=== PATIENT | male | born 1960 | race Hispanic/Latino ===

== ENCOUNTER 2019-10-27 05:49 | Outpatient (CLI) | payer BC, OTHER ==
[2019-10-27 11:23] LABS: #Eosinphils 0.2 thou/uL (0.0-0.7); #Lymphocytes 2.2 thou/uL (1.20-3.40); #Monocytes 0.5 thou/uL (0.11-0.59); #Neutrophils 2.6 thou/uL (1.40-6.50); %Basophils 0.7 % (0.0-1.0); %Eosinophils 2.8 % (0.0-10.0); %Lymphocytes 39.9 % (21.0-51.0); %Monocytes 9.5 % (0.0-10.0); %Neutrophils 47.3 % (42.0-75.0); Hemoglobin 16.3 g/dL (14.0-18.0); Mean Corpuscular Hemoglobin 30.9 pg (27.0-31.0); Mean Corpuscular Volume 93.6 fL (78.0-98.0); Mean Platelet Volume 10.4 fL (7.4-10.4); Platelet Count 141 thou/uL (130-400); RBC Distribution Width 11.6 % (11.5-14.5); Red Blood Cell (RBC) Count 5.27 mill/uL (4.70-6.10); White Blood Cell (WBC) Count 5.5 thou/uL (4.8-10.8)
[2019-10-27 12:27] LABS: Anion Gap 14 mmol/L (10-20); BUN (Urea Nitrogen) 20 mg/dL (8.4-25.7); Calc. Creatinine Clearance 0 mL/min (70-130); Calcium 9.1 mg/dL (7.8-10.44); Carbon Dioxide 21 mmol/L (23-31); Chloride 105 mmol/L (98-107); Estimated GFR-MDRD 80; Glucose 104 mg/dL (80-115); Potassium 4.1 mmol/L (3.5-5.1); Sodium 136 mmol/L (136-145)
[2019-10-27 17:18] LABS: SARS-CoV-2 MS2 Positive; SARS-CoV-2 N Gene Negative; SARS-CoV-2 S Gene Negative; SARS-CoV-2 by NAA Not Detected (NotDetected); SARS-CoV-2 orf1ab Negative
--- NOTE | 2019-10-30 15:37 | EKG ---
Test Reason : Blood Pressure : / mmHG Vent. Rate : 079 BPM Atrial Rate : 079 BPM P-R Int : 160 ms QRS Dur : 086 ms QT Int : 360 ms P-R-T Axes : 016 026 -03 degrees QTc Int : 412 ms Normal sinus rhythm Possible Inferior infarct , age undetermined Abnormal ECG Confirmed by REBECA BAÑUELOS M.D. ([id number]) on 10/30/2019 3:36:34 PM Referred By: DYAN Confirmed By:REBECA BAÑUELOS M.D.
== END 2019-10-27 05:50 | disposition home or self-care (01) ==
LOC: LABBT 05:49
PROVIDERS: ATTEND Specialist
DX: Z01.818 Encounter for other preprocedural examination (principal); K42.9 Umbilical hernia without obstruction or gangrene; K40.90 Unilateral inguinal hernia, without obstruction or gangrene, not specified as recurrent; Z20.828 Contact with and (suspected) exposure to other viral communicable diseases
CPT/HCPCS: 80048; 85025; 87635; 93005; 93010; U0003

== ENCOUNTER 2019-11-01 06:00 | Day surgery (SDC) | payer BC ==
[2019-10-26 15:42] VITALS: BMI 31.0
[2019-11-01] MEDS ORDERED: Levofloxacin 500 mg/D5W 100 ml Premix Bag ONE (06:15)
[2019-11-01] MEDS ORDERED: Acetaminophen 500 MG TAB ONE (06:15)
[2019-11-01] MEDS ORDERED: Ketorolac Tromethamine 30 MG/ML VIAL ONE (06:15)
[2019-11-01] MEDS ORDERED: Gabapentin 300 MG CAP ONE (06:15)
[2019-11-01] MEDS ORDERED: Fentanyl 100 MCG/2 ML VIAL ONE (06:36)
[2019-11-01] MEDS ORDERED: Bupivacaine PF 0.5% 30 ML VIAL ONE (06:46)
[2019-11-01] MEDS ORDERED: Lidocaine 1% w/Epinephrine 1:100K 20 ML VIAL ONE (06:47)
[2019-11-01] MEDS ORDERED: Fentanyl 250 MCG/5 ML VIAL ONE (06:51)
[2019-11-01] MEDS ORDERED: Midazolam HCl 2 mg/2 ml Vial ONE (07:19)
--- NOTE | 2019-11-01 10:30 | OP ---
DATE OF PROCEDURE: 11/01/2019 PREOPERATIVE DIAGNOSES: Left inguinal hernia, umbilical hernia. POSTOPERATIVE DIAGNOSIS: Left inguinal hernia, umbilical hernia. PROCEDURE PERFORMED: Robot laparoscopic large mesh 3D Bard Max mesh repair, left inguinal hernia. Open umbilical hernia repair with mesh, 8 cm round Bard with straps. ANESTHESIA: General, local 0.5% Marcaine 30 mL mixed with 1% Xylocaine with epinephrine 20 mL total volume used. FINDINGS: Very large left inguinal hernia. Umbilical hernia. DESCRIPTION OF PROCEDURE: The patient was taken to the operating room where under general anesthesia, Melo catheter placed at the beginning of the procedure and removed at the end. Abdomen was clipped of hair, prepared with ChloraPrep and draped in routine fashion. Local anesthetic was infiltrated in the skin and subcutaneous tissue about the operative sites. A supraumbilical left of midline incision made, pneumoperitoneum to 15 mmHg was obtained with the Veress needle, replaced with an 11-mm balloon port. Bilateral left and right incision was made above the umbilical level and 8-mm ports placed, properly positioned. Robot docked, positioned, and robot inguinal hernia left repair undertaken. Peritoneal flap dissected free medial to the anterior iliac spine left and flap dissected free from the cord structures, preserving the inferior epigastric vessels without harm. Timur ligament was identified towards the midline and laterally, the flap dissected free. A large lipoma of the cord and a very large hernia sac dissected free from the cord structures, skeletonizing it for at least 8 cm. A 3D Bard Max large left mesh placed, properly positioned, secured to Timur ligament with 2-0 Vicryl and to the anterior abdominal wall and to the left of the inferior epigastric vessels with 2-0 Vicryl suture. Mesh properly positioned. Good hemostasis noted. Peritoneal flap closed with continuous suture of 3-0 V-Loc suture. A 2nd 3-0 V-Loc suture used to close peritoneal flap. Ariton and sutures removed, retrieved. Pneumoperitoneum reduced trocar sites. Skin incisions closed with 4-0 Monocryl subcuticular and Dermabond applied. Infraumbilical incision made and carried down through skin and subcutaneous tissue and the hernia sac dissected free. There was a fairly large 3 cm hernia defect. Fascia dissected free circumferentially. 3D, 8 cm, round, mesh Bard placed in the preperitoneal space and the hernia defect closed by approximating mesh and fascia. [id number] type fashion with interrupted suture of 0 PDS pop-offs. Once this was completed, subcutaneous tissue was approximated with 3-0 Monocryl, skin with subdermal 4-0 Monocryl and [place] glue applied. The patient tolerated the procedure well. Job ID: [id number]
[2019-11-01] MEDS ORDERED: traMADol HCl 50 MG TAB ONE (12:29)
[2019-11-01] MEDS ORDERED: Glycopyrrolate 0.2 MG/ML 5 ML SYRINGE ONE (15:51)
[2019-11-01] MEDS ORDERED: Dexamethasone 20 MG/5 ML VIAL ONE (15:51)
[2019-11-01] MEDS ORDERED: Lidocaine 1% PF 5 ML VIAL ONE (15:51)
[2019-11-01] MEDS ORDERED: PROPOFOL 200 MG/20 ML VIAL ONE (15:51)
[2019-11-01] MEDS ORDERED: PHENYLEPHRINE-NS 100 MCG/ML 10 ML SYRINGE ONE (15:51)
[2019-11-01] MEDS ORDERED: EPHEDRINE 25 MG/5 ML SYRINGE ONE (15:51)
[2019-11-01] MEDS ORDERED: Ondansetron PF 4 MG/2 ML Vial ONE (15:51)
[2019-11-01] MEDS ORDERED: Rocuronium Bromide 10 MG/ML (10ML VIAL) ONE (15:51)
--- NOTE | 2019-11-02 12:30 | HP ---
HISTORY: Frank Evans is a 59-year-old male patient with works at [employer]. He has an umbilical hernia and left inguinal hernia that I saw him in April 2016, planning repair, but he has postponed this. He now reports for repair. He is due for colonoscopy soon, we will arrange that. Plan is laparoscopic/robot mesh repair left inguinal hernia outpatient and under the same anesthesia open umbilical hernia repair with mesh. He understands risks and benefits, and consents. ALLERGIES: PENICILLIN AND NEOSPORIN. TOBACCO: None. ALCOHOL: None. REVIEW OF SYSTEMS: Noncontributory. FAMILY HISTORY: Noncontributory. MEDICATIONS: None. PAST MEDICAL HISTORY: Anxiety. PAST SURGICAL HISTORY: Noncontributory. PHYSICAL EXAMINATION: VITAL SIGNS: 204 pounds, 68 inches, 135/81, 98, 97.9 degrees. HEAD, EARS, EYES, NOSE, THROAT: Unremarkable. LUNGS: Clear to auscultation. CARDIAC: Regular rate and rhythm. No murmur or gallop. ABDOMEN: Soft. Umbilical hernia reducible, 2-3 cm defect. GENITALIA: Left inguinal hernia on standing, enlarged on Valsalva. Testicles normal. Right groin without hernia. ASSESSMENT/PLAN: 1. Umbilical hernia. Plan open repair with mesh after completion of robot laparoscopic left inguinal hernia repair with mesh. He understands risks and benefits, consents. 2. Left inguinal hernia. Plan robot/laparoscopic repair with mesh outpatient. He understands risks and benefits, consents. Job ID: [id number]
== END 2019-11-01 15:15 | disposition home or self-care (01) ==
LOC: SDC 06:00
PROVIDERS: ATTEND Specialist
PROC: 0YU64JZ Supplement Left Inguinal Region with Synthetic Substitute, Percutaneous Endoscopic Approach (ICD-10-PCS; principal; 2019-11-01)
PROC: 0WUF0JZ Supplement Abdominal Wall with Synthetic Substitute, Open Approach (ICD-10-PCS; principal; 2019-11-01)
DX: K40.90 Unilateral inguinal hernia, without obstruction or gangrene, not specified as recurrent (principal); K42.9 Umbilical hernia without obstruction or gangrene; Z79.899 Other long term (current) drug therapy; Z88.0 Allergy status to penicillin; Z88.1 Allergy status to other antibiotic agents
CPT/HCPCS: C1781; J1100; J1885; J1956; J2250; J2405; J2704; J3010; S0020

== ENCOUNTER 2023-03-15 08:07 | Outpatient (CLI) | payer BC | END 2023-03-15 08:08 | disposition home or self-care (01) | LOC: BICMRI 08:07 | PROVIDERS: ATTEND Pediatrics | DX: M25.461 Effusion, right knee (principal); S83.241A Other tear of medial meniscus, current injury, right knee, initial encounter; M23.91 Unspecified internal derangement of right knee ==

== ENCOUNTER 2023-04-29 11:45 | Outpatient (CLI) | payer BC | END 2023-04-29 11:46 | disposition home or self-care (01) | LOC: BICRAD 11:45 | PROVIDERS: ATTEND Family Medicine | DX: S69.91XA Unspecified injury of right wrist, hand and finger(s), initial encounter (principal); M85.841 Other specified disorders of bone density and structure, right hand ==